=== PATIENT | male | born 1970 | race Caucasian/White ===

== ENCOUNTER → 2022-09-30 12:08 | Outpatient (CLI) | payer OTHER, MEDICAID, SELFPAY ==
--- NOTE | 2022-09-30 12:11 | DI.RAD.S_ITS ---
PROCEDURE: XR LUMBAR SPINE MIN 4V INDICATIONS: LBP TECHNIQUE: 5 views of the lumbar spine were acquired, including bilateral oblique views. COMPARISON: None. FINDINGS: Bones: 5 nonrib-bearing vertebrae are present. There is mild levoscoliosis of lumbar spine centered at L3 level. Degenerative endplate changes and loss of disc height L4-5 level is seen. No vertebral body compression fractures. No suspicious bony lesions. Soft tissues: Overlying bowel gas pattern is normal. No suspicious soft tissue calcifications. Oblique images: No pars defects. IMPRESSION: Degenerative disc disease at L4-5 level. No compression fracture or spondylolisthesis. Mild scoliosis as above. No gross pars defects. Dictated by: Pancho Polanco M.D. on 09/30/2022 at 15:10 Approved by: Pancho Polanco M.D. on 09/30/2022 at 15:11
== END ==
PROVIDERS: Referring Provider Anesthesiology; Visit Provider Anesthesiology
DX: M54.50 Low back pain, unspecified (principal); M51.36 Other intervertebral disc degeneration, lumbar region; M41.86 Other forms of scoliosis, lumbar region; M47.816 Spondylosis without myelopathy or radiculopathy, lumbar region; G89.29 Other chronic pain; Z68.27 Body mass index [BMI] 27.0-27.9, adult
CPT/HCPCS: 72110; 99214

== ENCOUNTER → 2022-12-16 10:37 | Outpatient (CLI) | payer OTHER, MEDICAID, SELFPAY ==
--- NOTE | 2022-12-16 10:39 | DI.RAD.S_ITS ---
PROCEDURE: XR CERVICAL SPINE 4V OR 5V INDICATIONS: NECK PAIN TECHNIQUE: 5 views of the cervical spine acquired. COMPARISON: None. FINDINGS: Bones: No fractures or dislocations to the C7 level. Loss of the normal cervical lordosis. Moderate disc height loss at C5-6 and C4-5. Mild disc height loss at C6-7, C2-3 and C3-4. Mild neural foraminal narrowing at left C4-5 . Mild, multilevel facet arthrosis, most prominent at C3-4, C4-5. Soft tissues: No prevertebral soft tissue swelling. IMPRESSION: Mild to moderate, multilevel degenerative disc disease and facet arthrosis. Of note, there is mild left neural foraminal narrowing at C4-5. Dictated by: Franklyn Das M.D. on 12/16/2022 at 14:08 Approved by: Franklyn Das M.D. on 12/16/2022 at 14:12
== END ==
PROVIDERS: Referring Provider Anesthesiology; Visit Provider Anesthesiology
DX: M47.812 Spondylosis without myelopathy or radiculopathy, cervical region (principal); M48.02 Spinal stenosis, cervical region; M50.31 Other cervical disc degeneration, high cervical region
CPT/HCPCS: 72050; 99214